=== PATIENT | female | born 1985 | race Hispanic/Latino ===

== ENCOUNTER 2017-06-01 09:25 | Emergency (ER) | payer SELFPAY ==
[~2017-06-01] VITALS: Ht 154.9 cm; Wt 99.8 kg
[~2017-06-01 09:25] MED LIST: CIPRO500 MG PO; FORTAMET500 MG PO; METFORMIN HCL1000 MG PO; TYLENOL WITH C1 EACH PO
[2017-06-01] MEDS ORDERED: SODIUM CHLORIDE 0.9% 1000ML 1,000 ML IV STA (10:16)
[2017-06-01 10:40] LABS: STREPTOCOCCUS GRP A ANTIGEN NEGATIVE (NEGATIVE)
[2017-06-01 10:50] LABS: INFLUENZAE A&B ANTIGEN (RAPID) POSITIVE FLU A (NEGATIVE)
[2017-06-01 11:02] LABS: BASOPHILS # (AUTO) 0.1 (0.0-0.1); BASOPHILS % 0.8 % (0.0-1.0); EOSINOPHILS # (AUTO) 0.1 (0.0-0.4); EOSINOPHILS % 0.8 % (0.0-6.0); HEMATOCRIT 43.8 % (34.2-44.1); LYMPHOCYTES # (AUTO) 1.1 (1.0-3.2); LYMPHOCYTES % 17.7 % (18.0-39.1); MEAN CORPUSCULAR HEMOGLOBIN 28.2 pg (28-32); MEAN CORPUSCULAR HGB CONC 34.2 g/dL (31-35); MEAN CORPUSCULAR VOLUME 82.3 fL (81-99); MONOCYTES # (AUTO) 0.8 (0.2-0.8); MONOCYTES % 13.2 % (4.4-11.3); NEUTROPHILS % 67.2 % (38.7-80.0); PLATELET COUNT 180 x10e3/uL (140-360); RED BLOOD COUNT 5.32 x10e6/uL (3.6-5.1); RED CELL DISTRIBUTION WIDTH 11.8 % (11.7-14.4)
[2017-06-01 11:19] LABS: ANION GAP 14.6 mmol/L (8-16); BLOOD UREA NITROGEN 12 mg/dL (7-26); BUN/CREATININE RATIO 15 (6-25); CALCIUM 9.1 mg/dL (8.4-10.2); CARBON DIOXIDE 24 mmol/L (22-29); CHLORIDE 103 mmol/L (98-107); CREATININE, SERUM 0.82 mg/dL (0.57-1.11); EST GLOMERULAR FILTRATION RATE > 60 ML/MIN (60-); GLUCOSE 350 mg/dL (74-118); POTASSIUM 3.6 mmol/L (3.5-5.1); SODIUM 138 mmol/L (136-145)
[2017-06-01 11:44] LABS: BILIRUBIN,URINE NEGATIVE (NEGATIVE); KETONES,URINE 3+ (NEGATIVE); LEUKOCYTE ESTERASE ,URINE 2+ (NEGATIVE); NITRITE,URINE NEGATIVE (NEGATIVE); URINE UROBILINOGEN 0.2 mg/dL (0.2 - 1)
[2017-06-01 12:14] LABS: CLARITY,URINE CLOUDY (CLEAR); COLOR,URINE YELLOW (YELLOW); PROTEIN,URINE DIPSTICK 1+ (NEGATIVE)
[2017-06-01 12:15] LABS: BACTERIA,URINE FEW /HPF; EPITHELIAL CELLS,URINE MANY /LPF
--- NOTE | 2017-06-01 12:21 | Diagnostic Imaging Report ---
PROCEDURE:CHEST 2 VIEWS TECHNIQUE:PA and lateral chest INDICATION:Flu COMPARISON:Patients [facility], , CHEST SINGLE (PORTABLE), 04/24/2016, 1:09. FINDINGS: The lungs are clear and symmetrically inflated. No pleural effusions. Normal heart size, mediastinal contour, and pulmonary vasculature. Intact skeleton. CONCLUSION: No acute abnormality. Dictated by: Levon Lucero M.D. on 06/01/2017 at 12:30 Electronically approved by: Levon Lucero M.D. on 06/01/2017 at 12:30
== END 2017-06-01 12:49 | disposition home or self-care (01) ==
LOC: ER 09:25
DX: R50.9 Fever, unspecified (principal); R05 Cough; J09.X2 Influenza due to identified novel influenza A virus with other respiratory manifestations
CPT/HCPCS: 36415; 71020; 80048; 81001; 81025; 83518; 85025; 87070; 87086; 87400; 99284; J7030

== ENCOUNTER 2017-10-01 13:12 | Emergency (ER) | payer SELFPAY ==
[~2017-10-01] VITALS: Ht 154.9 cm; Wt 99.8 kg
--- OUTSIDE RECORDS SUMMARY | 2017-10-01 13:15 | XMS REPORT ---
Author Author [facility] Address Unknown Phone Unavailable Care Team Providers Care Gate Technician Name Role Phone RAKESH IYER Unavailable Unavailable Problems This patient has no known problems. Allergies, Adverse Reactions, Alerts This patient has no known allergies or adverse reactions. Medications This patient has no known medications. Results Test Description Test Time Test Comments Text Results Atomic Results Result Comments CHEST 2 VIEWS [place] [id number] Patient Name: VIOLA GREENBERG MR #: [id number] : 1985 Age/Sex: 32/F Req #: [id number] Adm Physician: Ordered by: RAKESH IYER MD Report #: [id number] Location: ER Room/Bed: Procedure: [id number] DX/CHEST 2 VIEWS Exam Date: 06/01/17 Exam Time: 1210 REPORT STATUS: Signed PROCEDURE: CHEST 2 VIEWS TECHNIQUE: PA and lateral chest INDICATION: Flu COMPARISON: [facility] , DX, CHEST SINGLE (PORTABLE), 04/24/2016, 1:09. FINDINGS: The lungs are clear and symmetrically inflated. No pleural effusions. Normal heart size , mediastinal contour, and pulmonary vasculature. Intact skeleton. CONCLUSION: No acute abnormality. Dictated by: Arin Lucero M.D. on 06/01/2017 at 12:30 Electronically approved by: Arin Lucero M.D. on 06/01/2017 at 12:30 Dictated By: ARIN LUCERO MD 1230 Transcribed By: PATTI on 06/01/17 1230 COPY TO: RAKESH IYER MD
[2017-10-01] MEDS ORDERED: HYDRALAZINE HCL 20 MG/ML VIAL IV STA (13:27)
[2017-10-01] MEDS ORDERED: LABETALOL HCL 5 MG/ML 20ML VIAL IV ONE (14:00)
[2017-10-01 14:30] LABS: BASOPHILS % 0.4 % (0.0-1.0); EOSINOPHILS # (AUTO) 0.4 (0.0-0.4); EOSINOPHILS % 4.2 % (0.0-6.0); HEMOGLOBIN 14.6 g/dL (12.0-16.0); LYMPHOCYTES % 30.5 % (18.0-39.1); MEAN CORPUSCULAR HEMOGLOBIN 28.7 pg (28-32); MEAN CORPUSCULAR HGB CONC 35.6 g/dL (31-35); MEAN CORPUSCULAR VOLUME 80.6 fL (81-99); MONOCYTES % 10.1 % (4.4-11.3); NEUTROPHILS # (AUTO) 5.4 (2.1-6.9); NEUTROPHILS % 54.6 % (38.7-80.0); PLATELET COUNT 220 x10e3/uL (140-360); RED BLOOD COUNT 5.09 x10e6/uL (3.6-5.1); RED CELL DISTRIBUTION WIDTH 11.8 % (11.7-14.4)
[2017-10-01 14:32] LABS: BILIRUBIN,URINE NEGATIVE (NEGATIVE); CLARITY,URINE CLEAR (CLEAR); COLOR,URINE YELLOW (YELLOW); KETONES,URINE NEGATIVE (NEGATIVE); LEUKOCYTE ESTERASE ,URINE NEGATIVE (NEGATIVE); NITRITE,URINE NEGATIVE (NEGATIVE); PROTEIN,URINE DIPSTICK NEGATIVE (NEGATIVE); URINE UROBILINOGEN 0.2 mg/dL (0.2 - 1)
[2017-10-01 14:43] LABS: EPITHELIAL CELLS,URINE MODERATE /LPF; MUCUS,URINE FEW (RARE); RBC,URINE 0-5 /HPF (0-5); WBC,URINE (MAN) 0-5 /HPF (0-5)
[2017-10-01 14:49] LABS: ALANINE AMINOTRANSFERASE 58 IU/L (0-55); ALBUMIN 3.7 g/dL (3.5-5.0); ALBUMIN/GLOBULIN RATIO 0.9 (0.8-2.0); ALKALINE PHOSPHATASE 60 IU/L (40-150); ANION GAP 13.7 mmol/L (8-16); BLOOD UREA NITROGEN 18 mg/dL (7-26); BUN/CREATININE RATIO 22 (6-25); CALCIUM 9.5 mg/dL (8.4-10.2); CARBON DIOXIDE 27 mmol/L (22-29); CHLORIDE 99 mmol/L (98-107); CREATINE KINASE 55 IU/L (29-168); CREATININE, SERUM 0.81 mg/dL (0.57-1.11); EST GLOMERULAR FILTRATION RATE > 60 ML/MIN (60-); GLUCOSE 400 mg/dL (74-118); POTASSIUM 3.7 mmol/L (3.5-5.1); SODIUM 136 mmol/L (136-145)
[2017-10-01] MEDS ORDERED: SODIUM CHLORIDE 0.9% 1000ML 1,000 ML IV STA (15:02)
[2017-10-01] MEDS ORDERED: SODIUM CHLORIDE 0.9% 1000ML 1,000 ML ONE (15:04)
[2017-10-01] MEDS ORDERED: INSULIN REGULAR, HUMAN 100 UNIT/1 ML 3ML VIAL IV NR (15:30)
== END 2017-10-01 16:15 | disposition home or self-care (01) ==
LOC: ER 13:12
DX: I10 Essential (primary) hypertension (principal); E11.65 Type 2 diabetes mellitus with hyperglycemia
CPT/HCPCS: 36415; 80053; 81001; 82550; 82553; 82948; 84484; 85025; 87086; 93005; 99284; J3490; J7030

== ENCOUNTER 2018-01-05 11:06 | Emergency (ER) | payer SELFPAY ==
[~2018-01-05] VITALS: Ht 154.9 cm; Wt 99.8 kg
[2018-01-05] MEDS ORDERED: NIFEDIPINE 10 MG CAP PO STA (11:26)
[2018-01-05] MEDS ORDERED: ONDANSETRON HCL INJ 2 MG/ML VIAL IV STA (11:29)
[2018-01-05] MEDS ORDERED: SODIUM CHLORIDE 0.9% 1000ML 1,000 ML IV STA (11:29)
[2018-01-05] MEDS ORDERED: MORPHINE SULFATE INJ 4 MG/ML INJ IV STA ×2 (11:29→14:06)
[2018-01-05 11:42] LABS: CLARITY,URINE CLOUDY (CLEAR); COLOR,URINE AMBER (YELLOW)
[2018-01-05 11:43] LABS: BILIRUBIN,URINE 2+ (NEGATIVE); KETONES,URINE 1+ (NEGATIVE); LEUKOCYTE ESTERASE ,URINE 1+ (NEGATIVE); NITRITE,URINE POSITIVE (NEGATIVE); PROTEIN,URINE DIPSTICK 3+ (NEGATIVE); URINE UROBILINOGEN 4 mg/dL (0.2 - 1)
[2018-01-05 11:44] LABS: PREGNANCY TEST, URINE NEGATIVE (NEGATIVE)
[2018-01-05 11:48] LABS: BACTERIA,URINE MANY /HPF; RBC,URINE >50 /HPF (0-5); WBC,URINE (MAN) >50 /HPF (0-5)
[2018-01-05 11:49] LABS: EPITHELIAL CELLS,URINE FEW /LPF; MUCUS,URINE MODERATE (RARE)
[2018-01-05 11:55] LABS: BASOPHILS # (AUTO) 0.1 (0.0-0.1); BASOPHILS % 0.5 % (0.0-1.0); EOSINOPHILS # (AUTO) 0.3 (0.0-0.4); HEMATOCRIT 41.8 % (34.2-44.1); HEMOGLOBIN 14.9 g/dL (12.0-16.0); LYMPHOCYTES # (AUTO) 2.9 (1.0-3.2); LYMPHOCYTES % 18.8 % (18.0-39.1); MEAN CORPUSCULAR HEMOGLOBIN 29.5 pg (28-32); MEAN CORPUSCULAR HGB CONC 35.6 g/dL (31-35); MEAN CORPUSCULAR VOLUME 82.8 fL (81-99); MONOCYTES # (AUTO) 1.3 (0.2-0.8); MONOCYTES % 8.2 % (4.4-11.3); NEUTROPHILS # (AUTO) 10.8 (2.1-6.9); NEUTROPHILS % 70.2 % (38.7-80.0); PLATELET COUNT 274 x10e3/uL (140-360); RED BLOOD COUNT 5.05 x10e6/uL (3.6-5.1); RED CELL DISTRIBUTION WIDTH 12.4 % (11.7-14.4)
[2018-01-05 12:15] LABS: ALANINE AMINOTRANSFERASE 44 IU/L (0-55); ALBUMIN 4.2 g/dL (3.5-5.0); ALBUMIN/GLOBULIN RATIO 1.1 (0.8-2.0); ALKALINE PHOSPHATASE 66 IU/L (40-150); AMYLASE 28 U/L (25-125); ANION GAP 15.7 mmol/L (8-16); BLOOD UREA NITROGEN 9 mg/dL (7-26); BUN/CREATININE RATIO 10 (6-25); CALCIUM 9.3 mg/dL (8.4-10.2); CARBON DIOXIDE 23 mmol/L (22-29); CHLORIDE 100 mmol/L (98-107); CREATININE, SERUM 0.87 mg/dL (0.57-1.11); EST GLOMERULAR FILTRATION RATE > 60 ML/MIN (60-); GLUCOSE 347 mg/dL (74-118); LIPASE 36 U/L (8-78); POTASSIUM 3.7 mmol/L (3.5-5.1); SODIUM 135 mmol/L (136-145)
[2018-01-05] MEDS ORDERED: CEFTRIAXONE SOD 1 GM VIAL IV ONE (12:30)
[2018-01-05] MEDS ORDERED: METOPROLOL TARTRATE INJ 1 MG/ML VIAL IV ONE (13:45)
--- NOTE | 2018-01-05 14:10 | Diagnostic Imaging Report ---
CT Abdomen and Pelvis without contrast INDICATION: Sharp, central abdominal pain TECHNIQUE: Thin collimation axial images obtained from the diaphragm to the level of the pubic symphysis without nonionic intravenous contrast. RADIATION DOSE: Total DLP: 704.68 mGy*cm Estimated effective dose: (DLP x 0.015 x size factor) mSv CTDIvol has been reviewed. It is below the limits set by the Radiation Protocol Committee (RPC). COMPARISON: CT abdomen/pelvis 02/22/2014. ABDOMEN FINDINGS: Lung Bases: Mild bibasilar atelectasis. Visualized portion of the mediastinum is normal. Liver: Decreased attenuation. No mass. Gallbladder: Present and appears normal. No ductal dilatation. Pancreas: Normal attenuation without mass. Spleen: Normal size without mass. Adrenal Glands: No evidence for mass. Kidneys: Right: No renal calculus. No cortical mass or hydronephrosis Left: No renal calculus. No cortical mass or hydronephrosis Lymph Nodes: No enlarged abdominal or periaortic lymph nodes. Aorta: Normal in diameter. PELVIS FINDINGS: Bowel: Stomach: Normal. Small Bowel: Normal in caliber with normal wall thickness. Large Bowel: Moderate burden of stool in the transverse colon. No large bowel dilatation or mural thickening. Moderate amount of stool in the cecum. A few scattered diverticula are in the descending colon without associated inflammation. Appendix: Normal. Bladder: Normal. Ureters: No ureteral dilatation or calculus.. The uterus is present and normal in morphology. No adnexal mass. No free fluid or fluid collection. Bones: Unremarkable for age. IMPRESSION: 1. Diverticulosis coli. No evidence for bowel obstruction or inflammation. Moderate amount of stool throughout the large bowel. Normal appendix. 2. Hepatic steatosis. 3. No evidence of renal calculus or obstructive uropathy. Signed by: Dr. Gisele Shabazz MD on 01/05/2018 2:07 PM
[2018-01-05] MEDS ORDERED: SODIUM CHLORIDE 0.9% 1000ML 1,000 ML IV SCH (14:45)
[2018-01-05] MEDS ORDERED: SODIUM CHLORIDE 0.9% 1000ML 1,000 ML ONE (14:52)
[2018-01-05] MEDS ORDERED: MORPHINE SULFATE 2 MG/ML SYR ONE (15:10)
[2018-01-05] MEDS ORDERED: INSULIN REGULAR, HUMAN 100 UNIT/1 ML 3ML VIAL SQ ONE (15:15)
[2018-01-05] MEDS ORDERED: MORPHINE SULFATE INJ 4 MG/ML INJ IV ONE (15:30)
[2018-01-05 16:06] VITALS: BP 135/92
== END 2018-01-05 16:30 | disposition home or self-care (01) ==
LOC: ER 11:06
DX: M54.5 Low back pain (principal); N12 Tubulo-interstitial nephritis, not specified as acute or chronic; N10 Acute pyelonephritis; N30.91 Cystitis, unspecified with hematuria; I10 Essential (primary) hypertension; E11.9 Type 2 diabetes mellitus without complications
CPT/HCPCS: 36415; 74176; 80053; 81001; 81025; 82150; 82948; 83690; 85025; 99284; J0696; J2270 ×2; J2405; J7030

== ENCOUNTER 2018-05-22 20:21 | Emergency (ER) | payer SELFPAY ==
--- OUTSIDE RECORDS SUMMARY | 2018-05-22 20:24 | XMS REPORT | Continuity of Care Document ---
Author Author [facility] Address Unknown Phone Unavailable Problems Problem Status Onset Date Classification Date Reported Comments Source Discharge Diagnosis: Depression 01/31/2016 02/03/2016 [facility] SI Active 01/31/2016 [facility] Medications Medication Details Route Status Patient Instructions Ordering Provider Order Date Source Sodium Chloride 0.154 MEQ/ML Injectable Solution 1,000 mL, 2,000 ml/hr, Infuse Over: 30 minutes, Route: IV, 1,000, Drug form: INJ, ONCE, Priority: STAT, Dosing Weight 111.364 kg, Start date: 01/31/16 15:01:00 CDT, Duration: 1 doses or times, Stop date: 01/31/16 15:01:00 CDT Inactive 01/31/2016 [facility] Allergies, Adverse Reactions, Alerts Substance Category Reaction Severity Reaction type Status Date Reported Comments Source Immunizations Immunization Date Given Site Status Last Updated Comments Source Results Order Name Results Value Reference Range Date Interpretation Comments Source CHEM PANEL Globulin 4.0 g/dL 2.7 - 4.2 01/31/2016 [facility] CHEM PANEL B/C Ratio 19 6 - 25 01/31/2016 [facility] CHEM PANEL AGAP 13.0 meq/L 10.0 - 20.0 01/31/2016 [facility] CHEM PANEL A/G Ratio 0.9 0.7 - 1.6 01/31/2016 [facility] CHEM PANEL Sodium Lvl 133 meq/L 135 - 145 01/31/2016 [facility] CHEM PANEL Potassium Lvl 4.0 meq/L 3.5 - 5.1 01/31/2016 [facility] CHEM PANEL Chloride Lvl 99 meq/L 95 - 109 01/31/2016 [facility] CHEM PANEL CO2 25 meq/L 24 - 32 01/31/2016 [facility] CHEM PANEL Calcium Lvl 8.8 mg/dL 8.5 - 10.5 01/31/2016 [facility] CHEM PANEL ALT 96 unit/L 0 - 65 01/31/2016 [facility] CHEM PANEL Albumin Lvl 3.7 g/dL 3.5 - 5.0 01/31/2016 [facility] CHEM PANEL Total Protein 7.7 g/dL 6.4 - 8.4 01/31/2016 [facility] CHEM PANEL Bili Total 0.5 mg/dL 0.2 - 1.3 01/31/2016 [facility] CHEM PANEL Alk Phos 63 unit/L 39 - 136 01/31/2016 [facility] CHEM PANEL AST 31 unit/L 0 - 37 01/31/2016 [facility] CHEM PANEL eGFR 81 mL/min/1.73m2 01/31/2016 Result Comment: The eGFR is calculated using the CKD-EPI formula. In most young, healthy individuals the eGFR will be >90 mL/min/1.73m2. The eGFR declines with age. An eGFR of 60-89 may be normal in some populations, particularly the elderly, for whom the CKD-EPI formula has not been extensively validated. Use of the eGFR is not recommended in the following populations: Individuals with unstable creatinine concentrations, including patients and those with serious co-morbid conditions. Patients with extremes in muscle mass or diet. The data above are obtained from the National Kidney Disease Education Program (NKDEP) which additionally recommends that when the eGFR is used in patients with extremes of body mass index for purposes of drug dosing, the eGFR should be multiplied by the estimated BMI. [facility] CHEM PANEL Glucose Lvl 398 mg/dL 70 - 99 01/31/2016 [facility] CHEM PANEL Creatinine Lvl 0.95 mg/dL 0.50 - 1.40 01/31/2016 [facility] CHEM PANEL BUN 18 mg/dL 7 - 22 01/31/2016 [facility] DRUG SCREEN U Cocaine Scr Negative *NA* (01/31/16 2:01 PM) Negative 01/31/2016 [facility] DRUG SCREEN U Cannab Scr Negative *NA* (01/31/16 2:01 PM) Negative 01/31/2016 [facility] DRUG SCREEN U Phencyc Scr Negative *NA* (01/31/16 2:01 PM) Negative 01/31/2016 [facility] DRUG SCREEN U Opiate Scr Negative *NA* (01/31/16 2:01 PM) Negative 01/31/2016 [facility] DRUG SCREEN UDS Note See Note *NA* (01/31/16 2:01 PM) 01/31/2016 [facility] DRUG SCREEN U Amph Scr Negative *NA* (01/31/16 2:01 PM) Negative 01/31/2016 [facility] DRUG SCREEN U Mechelle Scr Negative *NA* (01/31/16 2:01 PM) Negative 01/31/2016 [facility] DRUG SCREEN U Benzodia Scr Negative *NA* (01/31/16 2:01 PM) Negative 01/31/2016 [facility] HEMATOLOGY RDW 13.1 % 11.5 - 14.5 01/31/2016 [facility] HEMATOLOGY MPV 8.4 fL 7.4 - 10.4 01/31/2016 [facility] MCHC 33.9 g/dL 32.0 - 36.0 01/31/2016 [facility] Platelet 203 K/CMM 133 - 450 01/31/2016 [facility] MCH 27.5 pg 27.0 - 31.0 01/31/2016 [facility] WBC 12.3 K/CMM 3.7 - 10.4 01/31/2016 [facility] RBC 5.37 M/CMM 4.20 - 5.40 01/31/2016 [facility] Hgb 14.8 g/dL 12.0 - 16.0 01/31/2016 [facility] HEMATOLOGY Hct 43.6 % 36.0 - 48.0 01/31/2016 [facility] MCV 81.2 fL 80.0 - 98.0 01/31/2016 [facility] HEMATOLOGY Basophils 0.5 % 0.0 - 1.0 01/31/2016 [facility] Monocytes 7.6 % 2.0 - 12.0 01/31/2016 [facility] HEMATOLOGY Eosinophils 5.4 % 0.0 - 4.0 01/31/2016 [facility] HEMATOLOGY Segs-Bands # 8.4 K/CMM 1.5 - 8.1 01/31/2016 [facility] HEMATOLOGY Segs 68.3 % 45.0 - 75.0 01/31/2016 [facility] HEMATOLOGY Lymphocytes 18.2 % 20.0 - 40.0 01/31/2016 [facility] HEMATOLOGY Monocytes # 0.9 K/CMM 0.0 - 0.8 01/31/2016 [facility] HEMATOLOGY Basophils # 0.1 K/CMM 0.0 - 0.2 01/31/2016 [facility] HEMATOLOGY Lymphocytes # 2.2 K/CMM 1.0 - 5.5 01/31/2016 [facility] HEMATOLOGY Eosinophils # 0.7 K/CMM 0.0 - 0.5 01/31/2016 [facility] TOXICOLOGY Salicylate Lvl null 0.0 - 30.0 01/31/2016 [facility] TOXICOLOGY Acetaminoph Lvl <2
(01/31/16 2:01 PM) 10 - 20 01/31/2016 [facility] TOXICOLOGY Etoh (%) null 01/31/2016 [facility] TOXICOLOGY Ethanol Lvl null 01/31/2016 [facility] URINE CHEM U Preg Negative (01/31/16 2:01 PM) Negative 01/31/2016 [facility] Chest 1view DX Chest 1view DX Study: Chest 1view DX Clinical Indication: Chest pain Comparison: None FINDINGS: The cardiac silhouette is normal in size. The lungs are clear and without consolidation or congestion. No pleural effusion or pneumothorax is seen. The osseous structures are unremarkable. IMPRESSION: No acute cardiopulmonary disease. SL: [id number] 01/31/2016 - - Read by: Heath Izquierdo MD Dictated Date/time: 01/31/16 13:49 Electronically Signed by: Heath Izquierdo MD 01/31/16 13:49 FINAL REPORT [facility] Vital Signs Vital Sign Value Date Comments Source Temperature Oral (F) 98.2 F 02/01/2016 [facility] Systolic (mm Hg) 154 02/01/2016 [facility] Diastolic (mm Hg) 91 02/01/2016 [facility] Respitory Rate 20 02/01/2016 [facility] Heart Rate 90 02/01/2016 [facility] Heart Rate 92 02/01/2016 [facility] Respitory Rate 18 02/01/2016 [facility] Systolic (mm Hg) 166 02/01/2016 [facility] Diastolic (mm Hg) 106 02/01/2016 [facility] Temperature Oral (F) 98.1 F 01/31/2016 [facility] Heart Rate 94 01/31/2016 [facility] Systolic (mm Hg) 145 01/31/2016 [facility] Diastolic (mm Hg) 96 01/31/2016 [facility] Respitory Rate 18 01/31/2016 [facility] Height 154.94 cm 01/31/2016 [facility] Temperature Oral (F) 98.2 F 01/31/2016 [facility] BMI Calculated 46.39 01/31/2016 [facility] Weight 111.364 01/31/2016 [facility] Encounters Location Location Details Encounter Type Encounter Number Reason For Visit Attending Provider ADM Date DC Date Status Source [facility] Emergency [id number] Bhargav Henriquez 01/31/2016 02/01/2016 [facility] Procedures Procedure Code Date Perfomer Comments Source
== END 2018-05-22 20:36 | disposition left against medical advice (07) ==
LOC: ER 20:21
DX: R73.9 Hyperglycemia, unspecified (principal)

== ENCOUNTER 2018-12-28 21:43 | Emergency (ER) | payer SELFPAY ==
[~2018-12-28] VITALS: Ht 154.9 cm; Wt 99.8 kg
--- OUTSIDE RECORDS SUMMARY | 2018-12-28 21:46 | XMS REPORT | Continuity of Care Document ---
Author Author [facility] Address Unknown Phone Unavailable Care Team Providers Care Hospice Bereavement Coordinator Name Role Phone [place] Unavailable Unavailable Problems Problem Status Onset Date Classification Date Reported Comments Source Discharge Diagnosis: Depression 01/31/2016 02/03/2016 [facility] Active 01/31/2016 [facility] Medications Medication Details Route Status Patient Instructions Ordering Provider Order Date Source Sodium Chloride 0.154 MEQ/ML Injectable Solution 1,000 mL, 2,000 ml/hr, Infuse Over: 30 minutes, Route: IV, 1,000, Drug form: INJ, ONCE, Priority: STAT, Dosing Weight 111.364 kg, Start date: 01/31/16 15:01:00 CDT, Duration: 1 doses or times, Stop date: 01/31/16 15:01:00 CDT Inactive 01/31/2016 [facility] Allergies, Adverse Reactions, Alerts No Known Medication Allergies Immunizations No Data Provided for This Section Results Order Name Results Value Reference Range Date Interpretation Comments Source CHEM PANEL Globulin 4.0 2.7 - 4.2 01/31/2016 [facility] CHEM PANEL B/C Ratio 19 6 - 25 01/31/2016 [facility] CHEM PANEL AGAP 13.0 10.0 - 20.0 01/31/2016 [facility] CHEM PANEL A/G Ratio 0.9 0.7 - 1.6 01/31/2016 [facility] CHEM PANEL Sodium Lvl 133 135 - 145 01/31/2016 [facility] CHEM PANEL Potassium Lvl 4.0 3.5 - 5.1 01/31/2016 [facility] CHEM PANEL Chloride Lvl 99 95 - 109 01/31/2016 [facility] CHEM PANEL CO2 25 24 - 32 01/31/2016 [facility] CHEM PANEL Calcium Lvl 8.8 8.5 - 10.5 01/31/2016 [facility] CHEM PANEL ALT 96 0 - 65 01/31/2016 [facility] CHEM PANEL Albumin Lvl 3.7 3.5 - 5.0 01/31/2016 [facility] CHEM PANEL Total Protein 7.7 6.4 - 8.4 01/31/2016 [facility] CHEM PANEL Bili Total 0.5 0.2 - 1.3 01/31/2016 [facility] CHEM PANEL Alk Phos 63 39 - 136 01/31/2016 [facility] CHEM PANEL AST 31 0 - 37 01/31/2016 [facility] CHEM PANEL eGFR 81 01/31/2016 Result Comment: The eGFR is calculated [...] should be multiplied by the estimated BMI. [facility] CHEM PANEL Glucose Lvl 398 70 - 99 01/31/2016 [facility] CHEM PANEL Creatinine Lvl 0.95 0.50 - 1.40 01/31/2016 [facility] CHEM PANEL BUN 18 7 - 22 01/31/2016 [facility] DRUG SCREEN U Cocaine Scr Negative *NA* (01/31/16 2:01 PM) Negative 01/31/2016 [facility] DRUG SCREEN U Cannab Scr Negative *NA* (01/31/16 2:01 PM) Negative 01/31/2016 [facility] DRUG SCREEN U Phencyc Scr Negative *NA* (01/31/16 2:01 PM) Negative 01/31/2016 [facility] DRUG SCREEN U Opiate Scr Negative *NA* (01/31/16 2:01 PM) Negative 01/31/2016 [facility] DRUG SCREEN UDS Note See Note *NA* (01/31/16 2:01 PM) 01/31/2016 [facility] DRUG SCREEN U Amph Scr Negative *NA* (01/31/16 2:01 PM) Negative 01/31/2016 [facility] DRUG SCREEN U Mechelle Scr Negative *NA* (8/29/16 2:01 PM) Negative 01/31/2016 [facility] DRUG SCREEN U Benzodia Scr Negative *NA* (01/31/16 2:01 PM) Negative 01/31/2016 [facility] HEMATOLOGY RDW 13.1 11.5 - 14.5 01/31/2016 [facility] HEMATOLOGY MPV 8.4 7.4 - 10.4 01/31/2016 [facility] HEMATOLOGY MCHC 33.9 32.0 - 36.0 01/31/2016 [facility] HEMATOLOGY Platelet 203 133 - 450 01/31/2016 [facility] HEMATOLOGY MCH 27.5 27.0 - 31.0 01/31/2016 [facility] HEMATOLOGY WBC 12.3 3.7 - 10.4 01/31/2016 [facility] HEMATOLOGY RBC 5.37 4.20 - 5.40 01/31/2016 [facility] HEMATOLOGY Hgb 14.8 12.0 - 16.0 01/31/2016 [facility] HEMATOLOGY Hct 43.6 36.0 - 48.0 01/31/2016 [facility] HEMATOLOGY MCV 81.2 80.0 - 98.0 01/31/2016 [facility] HEMATOLOGY Basophils 0.5 0.0 - 1.0 01/31/2016 [facility] HEMATOLOGY Monocytes 7.6 2.0 - 12.0 01/31/2016 [facility] HEMATOLOGY Eosinophils 5.4 0.0 - 4.0 01/31/2016 [facility] HEMATOLOGY Segs-Bands # 8.4 1.5 - 8.1 01/31/2016 [facility] HEMATOLOGY Segs 68.3 45.0 - 75.0 01/31/2016 [facility] HEMATOLOGY Lymphocytes 18.2 20.0 - 40.0 01/31/2016 [facility] HEMATOLOGY Monocytes # 0.9 0.0 - 0.8 01/31/2016 [facility] HEMATOLOGY Basophils # 0.1 0.0 - 0.2 01/31/2016 [facility] HEMATOLOGY Lymphocytes # 2.2 1.0 - 5.5 01/31/2016 [facility] HEMATOLOGY Eosinophils # 0.7 0.0 - 0.5 01/31/2016 [facility] TOXICOLOGY Salicylate Lvl <1.7 0.0 - 30.0 01/31/2016 [facility] TOXICOLOGY Acetaminoph Lvl <2 (01/31/16 2:01 PM) 10 - 20 01/31/2016 [facility] TOXICOLOGY Etoh (%) <0.003 01/31/2016 [facility] TOXICOLOGY Ethanol Lvl <3 01/31/2016 [facility] URINE CHEM U Preg Negative (01/31/16 2:01 PM) Negative 01/31/2016 [facility] Pathology Reports No Data Provided for This Section Diagnostic Reports Report Value Date Source Chest 1view DX Study: Chest 1view DX Clinical Indication: Chest pain Comparison: None FINDINGS: The cardiac silhouette is normal in size. The lungs are clear and without consolidation or congestion. No pleural effusion or pneumothorax is seen. The osseous structures are unremarkable. IMPRESSION: No acute cardiopulmonary disease. SL: [id number] 01/31/2016 [facility] Consultation Notes No Data Provided for This Section Discharge Summaries No Data Provided for This Section History and Physicals No Data Provided for This Section Vital Signs Vital Sign Value Date Comments Source Temperature Oral (F) 98.2 F 02/01/2016 [facility] Systolic (mm Hg) 154 02/01/2016 [facility] Diastolic (mm Hg) 91 02/01/2016 [facility] Respitory Rate 20 02/01/2016 [facility] Heart Rate 90 02/01/2016 [facility] Heart Rate 92 02/01/2016 [facility] Respitory Rate 18 02/01/2016 [facility] Systolic (mm Hg) 166 02/01/2016 [facility] Diastolic (mm Hg) 106 02/01/2016 [facility] Temperature Oral (F) 98.1 F 01/31/2016 [facility] Heart Rate 94 01/31/2016 [facility] Systolic (mm Hg) 145 01/31/2016 [facility] Diastolic (mm Hg) 96 01/31/2016 [facility] Respitory Rate 18 01/31/2016 [facility] Height 154.94 cm 01/31/2016 [facility] Temperature Oral (F) 98.2 F 01/31/2016 [facility] BMI Calculated 46.39 01/31/2016 [facility] Weight 111.364 01/31/2016 [facility] Encounters Location Location Details Encounter Type Encounter Number Reason For Visit Attending Provider ADM Date DC Date Status Source [facility] Emergency [id number] Bhargav Henriquez 01/31/2016 02/01/2016 [facility] Procedures No Data Provided for This Section Assessment and Plan No Data Provided for This Section Plan of Care No Data Provided for This Section Social History Social History Date Source Social History TypeResponse Substance Abuse Use: None. Alcohol Current, Type Beer. Frequency: 3-5 times per week. Smoking Status Never smoker; Exposure to Tobacco Smoke None; Cigarette Smoking Last 365 Days No; Reg Smoking Cessation Counseling No 02/01/2016 [facility] Family History No Data Provided for This Section Advance Directives No Data Provided for This Section Functional Status No Data Provided for This Section
== END 2018-12-28 22:03 | disposition home or self-care (01) ==
LOC: ER 21:43
DX: L73.9 Follicular disorder, unspecified (principal)
CPT/HCPCS: 99282

== ENCOUNTER 2019-11-28 12:54 | Emergency (ER) | payer SELFPAY ==
[~2019-11-28] VITALS: Ht 154.9 cm; Wt 99.8 kg
[2019-11-28] MEDS ORDERED: CEFTRIAXONE SOD 1 GM/NS 50 ML 50 ML IV ONE (13:30)
[2019-11-28] MEDS ORDERED: ACETAMINOPHEN 325 MG TAB PO ONE (13:30)
[2019-11-28] MEDS ORDERED: HYDROCODONE/CHLORPHENIRAMINE 5 ML LIQCR PO ONE (13:45)
[2019-11-28] MEDS ORDERED: AZITHROMYCIN 500MG/NS 250 ML 250 ML IV ONE (14:00)
--- NOTE | 2019-11-28 14:05 | NUR ---
2ND CALL TO PHARMACY FOR AZITHROMAX.
[2019-11-28 14:10] LABS: BASOPHILS # (AUTO) 0.1 (0.0-0.1); BASOPHILS % 0.7 % (0.0-1.0); EOSINOPHILS % 0.3 % (0.0-6.0); HEMATOCRIT 43.1 % (34.2-44.1); HEMOGLOBIN 14.6 g/dL (12.0-16.0); LYMPHOCYTES # (AUTO) 1.7 (1.0-3.2); MEAN CORPUSCULAR HEMOGLOBIN 28.1 pg (28-32); MEAN CORPUSCULAR HGB CONC 33.9 g/dL (31-35); MEAN CORPUSCULAR VOLUME 82.9 fL (81-99); MONOCYTES # (AUTO) 0.8 (0.2-0.8); MONOCYTES % 8.7 % (4.4-11.3); NEUTROPHILS # (AUTO) 6.6 (2.1-6.9); NEUTROPHILS % 72.1 % (38.7-80.0); PLATELET COUNT 205 x10e3/uL (140-360); RED CELL DISTRIBUTION WIDTH 12.5 % (11.7-14.4)
[2019-11-28 14:12] LABS: BILIRUBIN,URINE NEGATIVE (NEGATIVE); CLARITY,URINE SL CLOUDY (CLEAR); COLOR,URINE YELLOW (YELLOW); KETONES,URINE NEGATIVE (NEGATIVE); LEUKOCYTE ESTERASE ,URINE NEGATIVE (NEGATIVE); NITRITE,URINE NEGATIVE (NEGATIVE); PROTEIN,URINE DIPSTICK 1+ (NEGATIVE); URINE UROBILINOGEN 0.2 mg/dL (0.2 - 1)
--- NOTE | 2019-11-28 14:14 | Diagnostic Imaging Report ---
EXAMINATION: CHEST SINGLE (PORTABLE) INDICATION: Shortness of breath, cough COMPARISON: None FINDINGS: LINES/TUBES:None LUNGS:The lungs are well-inflated. No focal consolidation or pulmonary edema. PLEURA:No pleural effusion or pneumothorax. MEDIASTINUM:The cardiomediastinal silhouette appears normal in size and shape. BONES/SOFT TISSUES:No acute osseous injury. ABDOMEN:No free air under the diaphragm. IMPRESSION: No focal pneumonia or pulmonary edema. Signed by: Devin Hammonds MD on 11/28/2019 2:10 PM
[2019-11-28 14:26] LABS: BACTERIA,URINE RARE /HPF; EPITHELIAL CELLS,URINE MANY /LPF
[2019-11-28 14:33] LABS: ALANINE AMINOTRANSFERASE 38 IU/L (0-55); ALBUMIN/GLOBULIN RATIO 0.9 (0.8-2.0); ALKALINE PHOSPHATASE 59 IU/L (40-150); ANION GAP 15.9 mmol/L (8-16); BLOOD UREA NITROGEN 7 mg/dL (7-26); BUN/CREATININE RATIO 10 (6-25); CALCIUM 9.5 mg/dL (8.4-10.2); CARBON DIOXIDE 22 mmol/L (22-29); CHLORIDE 101 mmol/L (98-107); CREATININE, SERUM 0.67 mg/dL (0.57-1.11); EST GLOMERULAR FILTRATION RATE > 60 ML/MIN (60-); GLUCOSE 142 mg/dL (74-118); POTASSIUM 3.9 mmol/L (3.5-5.1); SODIUM 135 mmol/L (136-145)
[2019-11-28 15:01] LABS: INR 0.91; PROTHROMBIN TIME 12.8 seconds (11.9-14.5)
[2019-11-28 15:02] LABS: PARTIAL THROMBOPLASTIN TIME 28.7 seconds (23.8-35.5)
--- NOTE | 2019-11-28 15:10 | Emergency Department Note ---
History of Present Illnes History of Present Illness Chief Complaint: COVID PUI History of Present Illness This is a 34 year old female HERE FOR COVID SYMPTOMS FOR THE LAST 2 WEEKS, WAS TESTED AND WAS NEGATIVE BUT STILL HAVING SYMPTOMS. Historian: Patient Arrival Mode: Car Patient Access Required: No Onset (how long ago): week(s) (2) Location: ALL OVER Quality: ACHY Radiation: Reports non-radiation Severity: moderate Onset quality: gradual Timing of current episode: intermittent Progression: waxing and waning Chronicity: new Context: Reports recent illness Relieving factors: none Exacerbating factors: none Associated symptoms: Reports denies other symptoms Past Medical/Family History Physician Review I have reviewed the patient's past medical and family history. Any updates have been documented here. Past Medical History Recent Fever: Yes Clinical Suspicion of Infectio: Yes New/Unexplained Change in Ment: No Past Medical History: Hypertension, Diabetes Past Surgical History: Other Surgery: i&d on leg Social History Smoking Cessation: Current some day smoker Counseling Performed: No Alcohol Use: Occasional Any Illegal Drug Use: No TB Exposure/Symptoms: No Physically hurt or threatened: No Other Last Tetanus: unk Last Flu: N Last Pneumovax: N Review of Systems Review of Systems Constitutional: Reports chills, Reports fever, Reports malaise, Reports weakness EENTM: Reports no symptoms Cardiovascular: Reports no symptoms Respiratory: Reports cough, Reports dyspnea Gastrointestinal: Reports no symptoms Genitourinary: Reports no symptoms Musculoskeletal: Reports no symptoms Integumentary: Reports no symptoms Neurological: Reports no symptoms Psychological: Reports no symptoms Endocrine: Reports no symptoms Hematological/Lymphatic: Reports no symptoms Physical Exam Related Data Allergies: Coded Allergies: No Known Allergies (Unverified , 06/01/17) Triage Vital Signs Vital Signs Date Time Temp Pulse Resp B/P (MAP) Pulse Ox O2 Delivery O2 Flow Rate FiO2 11/28/19 13:06 100.1 116 22 169/109 97 Vital signs reviewed: Yes Physical Exam CONSTITUTIONAL Constitutional: Present well-developed, Present well-nourished HENT HENT: Present normocephalic, Present atraumatic, Present oropharynx clear/moist, Present nose normal HENT L/R: Present left ext ear normal, Present right ext ear normal EYES Eyes: Reports PERRL, Reports conjunctivae normal NECK Neck: Present ROM normal PULMONARY Pulmonary: Present effort normal, Present breath sounds normal CARDIOVASCULAR Cardiovascular: Present regular rhythm, Present heart sounds normal, Present capillary refill normal, Present normal rate GASTROINTESTINAL Abdominal: Present soft, Present nontender, Present bowel sounds normal GENITOURINARY Genitourinary: Present exam deferred SKIN Skin: Present warm, Present dry MUSCULOSKELETAL Musculoskeletal: Present ROM normal NEUROLOGICAL Neurological: Present alert, Present oriented x 3, Present no gross motor or sensory deficits PSYCHOLOGICAL Psychological: Present mood/affect normal, Present judgement normal Results Laboratory Result Diagram: 11/28/19 1345 11/28/19 1345 Laboratory Laboratory Tests Test 11/28/19 14:28 11/28/19 13:55 11/28/19 13:45 11/28/19 12:00 Urine Color Yellow (YELLOW) Urine Clarity Sl cloudy (CLEAR) Urine pH 6.5 (5 - 7) Urine Specific [place] 1.025 (1.010-1.025) Urine Protein 1+ (NEGATIVE) Urine Glucose (UA) Negative (NEGATIVE) Urine Ketones Negative (NEGATIVE) Urine Blood Negative (NEGATIVE) Urine Nitrite Negative (NEGATIVE) Urine Bilirubin Negative (NEGATIVE) Urine Urobilinogen 0.2 mg/dL (0.2 - 1) Urine Leukocyte Esterase Negative (NEGATIVE) Urine RBC None /HPF (0-5) Urine WBC None /HPF (0-5) Urine Epithelial Cells Many /LPF (NONE) Urine Bacteria Rare /HPF (NONE) White Blood Count 9.21 x10e3/uL (4.8-10.8) Red Blood Count 5.20 x10e6/uL (3.6-5.1) Hemoglobin 14.6 g/dL (12.0-16.0) Hematocrit 43.1 % (34.2-44.1) Mean Corpuscular Volume 82.9 fL (81-99) Mean Corpuscular Hemoglobin 28.1 pg (28-32) Mean Corpuscular Hemoglobin Concent 33.9 g/dL (31-35) Red Cell Distribution Width 12.5 % (11.7-14.4) Platelet Count 205 x10e3/uL (140-360) Neutrophils (%) (Auto) 72.1 % (38.7-80.0) Lymphocytes (%) (Auto) 18.0 % (18.0-39.1) Monocytes (%) (Auto) 8.7 % (4.4-11.3) Eosinophils (%) (Auto) 0.3 % (0.0-6.0) Basophils (%) (Auto) 0.7 % (0.0-1.0) Neutrophils # (Auto) 6.6 (2.1-6.9) Lymphocytes # (Auto) 1.7 (1.0-3.2) Monocytes # (Auto) 0.8 (0.2-0.8) Eosinophils # (Auto) 0.0 (0.0-0.4) Basophils # (Auto) 0.1 (0.0-0.1) Absolute Immature Granulocyte (auto 0.02 x10e3/uL (0-0.1) Sodium Level 135 mmol/L (136-145) Potassium Level 3.9 mmol/L (3.5-5.1) Chloride Level 101 mmol/L (98-107) Carbon Dioxide Level 22 mmol/L (22-29) Anion Gap 15.9 mmol/L (8-16) Blood Urea Nitrogen 7 mg/dL (7-26) Creatinine 0.67 mg/dL (0.57-1.11) Estimat Glomerular Filtration Rate > 60 ML/MIN (60-) BUN/Creatinine Ratio 10 (6-25) Glucose Level 142 mg/dL (74-118) Calcium Level 9.5 mg/dL (8.4-10.2) Total Bilirubin 0.6 mg/dL (0.2-1.2) Aspartate Amino Transf (AST/SGOT) 39 IU/L (5-34) Alanine Aminotransferase (ALT/SGPT) 38 IU/L (0-55) Alkaline Phosphatase 59 IU/L (40-150) Total Protein 8.5 g/dL (6.5-8.1) Albumin 4.0 g/dL (3.5-5.0) Globulin 4.5 g/dL (2.3-3.5) Albumin/Globulin Ratio 0.9 (0.8-2.0) Lab results reviewed: Yes Imaging Imaging results reviewed: Yes Impressions Procedure: [id number] DX/CHEST SINGLE (PORTABLE) Exam Date: 11/28/19 Exam Time: 1353 REPORT STATUS: Signed EXAMINATION: CHEST SINGLE (PORTABLE) INDICATION: Shortness of breath, cough COMPARISON: None FINDINGS: LINES/TUBES:None LUNGS:The lungs are well-inflated. No focal consolidation or pulmonary edema. PLEURA:No pleural effusion or pneumothorax. MEDIASTINUM:The cardiomediastinal silhouette appears normal in size and shape. BONES/SOFT TISSUES:No acute osseous injury. ABDOMEN:No free air under the diaphragm. IMPRESSION: No focal pneumonia or pulmonary edema. Signed by: Devin Hammonds MD on 11/28/2019 2:10 PM Procedures 12 Lead ECG Interpretation ECG Interpretation : ECG: ECG 1 Patient Access: Interpreted by ED physician Date: Nov 28, 2019 Time: 13:43 Rhythm: sinus tachycardia Rate: tachycardia (106) QRS axis: normal ST segments normal: Yes T waves normal: Yes Clinical Impression: abnormal ECG Assessment & Plan Medical Decision Making MDM CBC, CHEM, ECG, LACTIC, UA/CX, BLOOD CX'S, CXR, COVID - R/O PNEUMONIA, SEPSIS, COVID, STEMI, UTI, SEPSIS Reassessment Reassessment LABS LOOK GOOD, XRAY NORMAL, DC HOME - ZPAK, SELF-QUARANTINE, PRONING, F/U PCP Assessment & Plan Final Impression: (1) Acute bronchitis, unspecified (2) Viral syndrome Depart Disposition: HOME, SELF-CARE Last Vital Signs Date Time Temp Pulse Resp B/P (MAP) Pulse Ox O2 Delivery O2 Flow Rate FiO2 11/28/19 14:53 99.1 103 16 150/96 97 Home Meds Reported Medications Metformin Hcl (FORTAMET) 500 Mg Tab.er.24, 500 MG PO BID 02/23/14 Medications in the ED Ceftriaxone Sodium 50 ml @ 100 mls/hr ONCE ONCE IV Last administered on 11/28/19at 14:02; Admin Dose 100 MLS/HR; Start 11/28/19 at 13:30; Stop 11/28/19 at 13:59; Status DC Azithromycin 250 ml @ 250 mls/hr NOW ONCE IV Last administered on 11/28/19at 14:39; Admin Dose 250 MLS/HR; Start 11/28/19 at 14:00; Stop 11/28/19 at 14:59; Status DC Acetaminophen 975 mg ONCE ONCE PO Last administered on 11/28/19at 14:02; Admin Dose 975 MG; Start 11/28/19 at 13:30; Stop 11/28/19 at 13:41; Status DC Hydrocodone Bitartrate 5 ml NOW ONCE PO Last administered on 11/28/19at 14:02; Admin Dose 5 ML; Start 11/28/19 at 13:45; Stop 11/28/19 at 13:46; Status DC SONIA MAXWELL MD Nov 28, 2019 15:10
--- NOTE | 2019-11-28 15:36 | NUR ---
STILL NEED MD TO DO DISCHARGE FOR PT
== END 2019-11-28 16:14 | disposition home or self-care (01) ==
LOC: ER 13:11
DX: R50.9 Fever, unspecified (principal); R05 Cough; J20.9 Acute bronchitis, unspecified; B34.9 Viral infection, unspecified; R94.31 Abnormal electrocardiogram [ECG] [EKG]; I10 Essential (primary) hypertension; E11.9 Type 2 diabetes mellitus without complications; Z11.59 Encounter for screening for other viral diseases; F17.210 Nicotine dependence, cigarettes, uncomplicated
CPT/HCPCS: 36415; 71045; 80053; 81001; 83605; 85025; 85610; 85730; 87040; 87086; 87635; 93005; 99284; J0456; J0696

== ENCOUNTER 2022-11-20 15:29 | Emergency (ER) | payer MEDICAID, SELFPAY | END 2022-11-20 16:00 | disposition left against medical advice (07) | LOC: ER 15:35 | DX: R10.9 Unspecified abdominal pain (principal) ==